=== PATIENT | female | born 1990 | race Hispanic/Latino ===

== ENCOUNTER 2023-08-14 13:24 | Inpatient (IN) | payer MEDICAID, OTHER ==
[2023-08-14] MEDS ORDERED: Methylergonovine 0.2 MG/ML VIAL IM PRN (21:11)
[2023-08-14] MEDS ORDERED: fentaNYL 50 mcg/mL 1 mL Vial SLOW IVP PRN (21:11)
[2023-08-14] MEDS ORDERED: Lidocaine 1% (PF) 30 ML VIAL SC PRN (21:11)
[2023-08-14] MEDS ORDERED: Ondansetron PF 4 MG/2 ML Vial IVP PRN (21:11)
[2023-08-14] MEDS ORDERED: Promethazine HCl 25 MG/ML VIAL IM PRN (21:11)
[2023-08-14] MEDS ORDERED: Diphenoxylate HCl/Atropine Tablet PO PRN (21:11)
[2023-08-14] MEDS ORDERED: HYDROcodone/Acetaminophen 5/325 mg Tablet PO PRN (21:11)
[2023-08-14] MEDS ORDERED: Misoprostol 200 MCG TAB PR PRN (21:11)
[2023-08-14] MEDS ORDERED: Carboprost 250 MCG/ML AMP IM PRN (21:11)
[2023-08-14] MEDS ORDERED: Tranexamic Acid 1,000 MG/10 ML VIAL IVP PRN (21:11)
[2023-08-14] MEDS ORDERED: hydrALAZINE 20 MG/ML VIAL SLOW IVP PRN (21:11)
[2023-08-14] MEDS ORDERED: Ibuprofen 800 MG TAB PO PRN (21:11)
[2023-08-14] MEDS ORDERED: Acetaminophen 500 MG TAB PO PRN (21:11)
[2023-08-14 21:12] VITALS: BMI 33.6
[2023-08-14 21:51] LABS: Hematocrit 36.8 % (34.9-44.5); Hemoglobin 12.4 g/dL (12.0-15.5); Mean Corpuscular HGB CONC 33.7 g/dL (32.0-36.0); Mean Corpuscular Hemoglobin 29.6 pg (27.0-33.0); Mean Corpuscular Volume 87.8 fl (81.6-98.3); Mean Platelet Volume 11.7 fl (7.4-10.4); Platelet Count 233 10x3/uL (150-450); RBC Distribution Width 14.4 % (11.5-14.5); Red Blood Cell (RBC) Count 4.19 10x6/uL (3.90-5.03); White Blood Cell (WBC) Count 8.1 10x3/uL (3.5-10.5)
[2023-08-14] MEDS ORDERED: Lactated Ringer's 1,000 ML IV SCH (22:15)
[2023-08-14] MEDS ORDERED: Oxytocin 30 units/NS 500 ML 500 ML IV SCH ×2 (22:15)
[2023-08-14] MEDS: Misoprostol 100 MCG TAB VAG SCH (22:16)
[2023-08-14 22:46] LABS: HBSAg Index 0.21 S/CO (0-0.99); Hep B Surf Ag - L&D Non-Reactive S/CO (NonReactive)
[2023-08-14 22:47] LABS: Syphilis Antibody Nonreactive (Nonreactive); Syphilis Antibody Index 0.06 S/CO (<1.00 Non-Reactive)
[2023-08-15] MEDS: Misoprostol 100 MCG TAB VAG SCH ×2 (01:48→11:48)
[2023-08-15] MEDS: Oxytocin 30 units/NS 500 ML 500 ML IV SCH ×2 (09:23→10:33)
[2023-08-15] MEDS ORDERED: Milk Of Magnesia 30 ML UDCUP PO PRN (11:19)
[2023-08-15] MEDS ORDERED: HYDROcodone/Acetaminophen 5/325 mg Tablet PO PRN (11:19)
[2023-08-15] MEDS ORDERED: Promethazine HCl 25 MG/ML VIAL IM PRN (11:19)
[2023-08-15] MEDS ORDERED: Benzocaine-Menthol 82.5 ML CAN TOP PRN (11:19)
[2023-08-15] MEDS ORDERED: Lanolin Ointment 7 GM TUBE TOP PRN (11:19)
[2023-08-15] MEDS ORDERED: Oxytocin 30 units/NS 500 ML 500 ML IV SCH (11:19)
[2023-08-15] MEDS ORDERED: hydrALAZINE 20 MG/ML VIAL SLOW IVP PRN (11:19)
[2023-08-15] MEDS ORDERED: Ondansetron PF 4 MG/2 ML Vial IVP PRN (11:19)
[2023-08-15] MEDS ORDERED: Bisacodyl 10 MG SUPP PR PRN (11:19)
[2023-08-15] MEDS ORDERED: Boostrix 0.5 ML (Tdap) VIAL (>/=7 yrs of age) IM ONE (11:19)
[2023-08-15] MEDS ORDERED: diphenhydrAMINE 25 MG CAP PO PRN (11:19)
[2023-08-15] MEDS: Ferrous Sulfate 325 MG TAB PO SCH (14:19)
[2023-08-15] MEDS: Ibuprofen 800 MG TAB PO SCH (17:34)
[2023-08-15] MEDS: Docusate 100 MG CAP PO SCH (21:57)
[2023-08-16] MEDS: Ibuprofen 800 MG TAB PO SCH ×2 (02:52→09:05)
[2023-08-16 07:49] VITALS: BP 99/54; TEMP 98.8
[2023-08-16] MEDS: Ferrous Sulfate 325 MG TAB PO SCH ×2 (08:16→14:31)
[2023-08-16] MEDS ORDERED: Prenatal Vitamin 1 TAB PO SCH (09:00)
[2023-08-16] MEDS: Docusate 100 MG CAP PO SCH (09:05)
== END 2023-08-16 15:51 | disposition home or self-care (01) | DRG 807 ==
LOC: CSHLD 20:35 → CSHPED 08-15 11:30
PROVIDERS: ADMIT Family Medicine; ATTEND Family Medicine
PROC: 10E0XZZ Delivery of Products of Conception, External Approach (ICD-10-PCS; principal; 2023-08-15)
PROC: 0KQM0ZZ Repair Perineum Muscle, Open Approach (ICD-10-PCS; 2023-08-15)
PROC: 10907ZC Drainage of Amniotic Fluid, Therapeutic from Products of Conception, Via Natural or Artificial Opening (ICD-10-PCS; 2023-08-15)
PROC: 10H07YZ Insertion of Other Device into Products of Conception, Via Natural or Artificial Opening (ICD-10-PCS; 2023-08-15)
DX: O69.81X0 Labor and delivery complicated by cord around neck, without compression, not applicable or unspecified (principal); Z37.0 Single live birth; Z3A.39 39 weeks gestation of pregnancy; O70.1 Second degree perineal laceration during delivery
CPT/HCPCS: 85027; 86780; 86850; 86900; 86901; 87340; J2001; J2590